=== PATIENT | female | born 1940 | race Caucasian/White ===

== ENCOUNTER 2024-08-15 10:01 | Outpatient (REF) | payer OTHER, SELFPAY ==
--- NOTE | ~2024-08-15 | MR_ITS ---
EXAMINATION: MR BRAIN WITHOUT CONTRAST CLINICAL INFORMATION: Mental status changes. Left-sided decreased hearing. COMPARISON: None available. TECHNIQUE: MRI of the brain was obtained using routine sequences without contrast. FINDINGS: No focal restricted diffusion is demonstrated to suggest acute or subacute cerebral ischemia. No evidence of acute or chronic hemorrhagic products on heme-sensitive imaging. Scattered and partially confluent periventricular, deep white matter, and brainstem T2 FLAIR hyperintensities consistent with moderate underlying microangiopathy. Proportional prominence of the ventricles and sulcal spaces without evidence of obstructive hydrocephalus. No abnormal mass effect. No midline shift. Normal appearance of the pituitary gland. Normal positioning of the cerebellar tonsils. Normal arterial and venous vascular flow voids are present. Normal, homogeneous marrow signal. Mild mucosal thickening of the paranasal sinuses. No signal abnormalities within the mastoids. Maintained. Normal T2 signal within the labyrinthine structures. MR/MR head/brain wo con IMPRESSION: 1. No acute intracranial abnormalities. 2. Moderate underlying microangiopathy and generalized cerebral volume loss. Electronically signed by: Luisito Bruno DO 10/12/2024 04:18 AM [facility]
== END 2024-08-15 10:02 | disposition home or self-care (01) ==
LOC: HO.MRI 10:01
PROVIDERS: PCP Nurse Practitioner Family; Visit Provider Nurse Practitioner Family
DX: R29.818 Other symptoms and signs involving the nervous system (principal)
CPT/HCPCS: 70551